=== PATIENT | male | born 1990 | race Hispanic/Latino ===

== ENCOUNTER 2016-08-22 08:09 | Day surgery (SDC) | payer OTHER ==
[~2016-08-22] VITALS: Ht 175.3 cm; Wt 79.5 kg
--- NOTE | 2016-08-22 07:17 | PCM.HPANE ---
Patient Data Surgeon Admitting Provider: Attending Provider:Jl Bradley DO Primary Care Physician:Fahad Ivy MD Other Provider: Reason for Visit Right Middle Finger Mass Ht/WT & BMI Height (Feet): 5 Height (Inches): 9 Weight (Kilograms): 81.01 Body Mass Index 26.00 Allergies Coded Allergies: No Known Allergies (Unverified , 08/21/16) Past Anesthesia History Anesthesia History: Denies:: Anesthesia Reactions Diabetes History Hx Diabetes?: No Medications No Active Prescriptions or Reported Meds History History of ENT Problems?: No Hx of Heart Problems?: No Hx of Respiratory Problem?: No Respiratory History: Denies:: Oxygen Administration Use of C-PAP Machine Hx Neurologic Problems?: No Hx of GI Problems?: No Hx of Problems?: No Hx Musculoskeletal Problems?: Yes Musculoskeletal History: Positive for:: Musculoskeletal Trauma (right middle finger mass current admission problem) Hx of Psycho/Social Problems?: No Hx Any Other Health Problems?: No Other History: Denies:: Cancer Hx Diabetes: No Have You Smoked inLast 12 mo: No Stop/Bang P-Blood Pressure: treated: No B- Body Mass Index > 35 kg/m2: No A- Age over 50: No N- Neck Large Circumference: No G- Gender Male: Yes Risk Assessment Category Category 1A: Patient has history of documented sleep apnea, and HAS NOT received any narcotic, sedative or anesthesia administration during this stay. Category 1B: Patient has history of documented sleep apnea, and HAS received any narcotic , sedative or anesthesia administration during this stay Category 2: Patient has SUSPECTED Obstructive Sleep Apnea, and HAS received any narcotic , sedative or anesthesia administration during this stay. Category 3: Patient has SUSPECTED Obstructive Sleep Apnea and HAS NOT received narcotic, sedative or anesthesia administration during this stay. Category 4: Outpatient in Procedural Areas with known sleep apnea or who screen positive for High Risk via the STOP/BANG questionnaire. Exam Exam General Appearance: Alert, Oriented X3, Cooperative HEENT/AIRWAY: MP 2, Neck Movement (from), Mouth Opening (wnl) Lungs: Clear to Auscultation Heart: Exam Unremarkable Plan Impression Patient chart reviewed, patient interviewed and anesthestic plan with risks, benefits, and alternatives discussed, and informed consent obtained. ASA Physical Status: ASA1 Normal Healthy Anesthetic Plan: MAC Bene/Risks/Altern/Consents: Yes HP Complete Prior to Induction: Yes Dequan Crockett MD Aug 22, 2016 07:17
[~2016-08-22 08:09] MED LIST: Lactated Ringer's 1,000 ML IV SCH
[2016-08-22] MEDS ORDERED: Lidocaine PF 1% 30 mL Inj ONE (08:10)
[2016-08-22] MEDS ORDERED: Propofol 10,000 mCg/mL 20 mL Inj ONE (08:10)
[2016-08-22] MEDS ORDERED: fentaNYL-PF 50 mCg/mL 2 mL Inj ONE (08:10)
[2016-08-22] MEDS ORDERED: Ondansetron 2 mg/mL 2 mL Inj ONE (08:10)
[2016-08-22] MEDS ORDERED: Lactated Ringer's 1,000 ML IV ONE (09:22)
[2016-08-22 09:24] VITALS: BP 112/73; PULSE 82; RESP 14; O2SAT 100
[2016-08-22] MEDS ORDERED: Lactated Ringer's 1,000 ML IV SCH (10:06)
[2016-08-22] MEDS ORDERED: Lactated Ringer's 500 ML IV PRN (10:06)
[2016-08-22] MEDS ORDERED: Phenylephrine 10,000 mCg/mL Inj IVPUSH PRN (10:10)
[2016-08-22] MEDS ORDERED: HYDROmorphone 1 mg/mL Inj IVPUSH PRN (10:10)
[2016-08-22] MEDS ORDERED: Ondansetron 2 mg/mL 2 mL Inj IVPUSH PRN (10:10)
[2016-08-22] MEDS ORDERED: EPHEDrine Sulfate 50 mg/mL Inj IVPUSH PRN (10:10)
[2016-08-22] MEDS ORDERED: MetoCLOpramide 5 mg/mL 2 mL Inj IVPUSH PRN (10:10)
[2016-08-22] MEDS ORDERED: fentaNYL-PF 50 mCg/mL 2 mL Inj IVPUSH PRN (10:10)
[2016-08-22] MEDS ORDERED: Dexamethasone 4 mg/mL Inj IVPUSH PRN (10:10)
[2016-08-22] MEDS ORDERED: HYDROcodone-APAP 5-325 mg Tablet PO PRN (10:35)
[2016-08-22 11:40] VITALS: BP 130/69; PULSE 90; RESP 16; O2SAT 98
[2016-08-22 12:02] VITALS: BP 115/65; PULSE 81; RESP 16; O2SAT 98
--- NOTE | 2016-08-22 12:27 | PCM.ANEP2 ---
Post Anesthesia Evaluation ASA/CMS Post Anesthesia VS in Patient's Normal Range?: Yes Resp Stable; Airway Patent?: Yes CV Function & Hydration Stable: Yes Mental Status Recovered?: Yes Pain control Satisfactory?: Yes N/V Control Satisfactory?: Yes Dequan Crockett MD Aug 22, 2016 12:27
--- NOTE | 2016-08-22 12:27 | PCM.ANEP1 ---
Post Anesthesia Phase 1 PACU Phase 1 Assessment Vital Signs Vital Signs Date Time Temp Pulse Resp B/P Pulse Ox O2 Delivery O2 Flow Rate FiO2 08/22/16 12:02 36.4 81 16 115/65 98 Room Air 08/22/16 11:40 90 16 130/69 98 Room Air 08/22/16 09:24 36.4 82 14 112/73 100 Room Air Anesthetic Administered: MAC Level of Alertness: Awake, talking SAENZ's with Equal Strength: No Pain: No Oxygen Delivery: Room Air Lungs: Normal Air Movement Dequan Crockett MD Aug 22, 2016 12:27
--- NOTE | 2016-08-23 00:30 | OP ---
[address] [address] OPERATIVE REPORT PATIENT: JOO MAHMOOD : 1990 MR#: [id number] ADMIT: 08/22/2016 JOB ID: [id number] DATE OF SURGERY: 08/22/2016 PREOPERATIVE DIAGNOSIS(ES): Right middle finger soft tissue mass. POSTOPERATIVE DIAGNOSIS(ES): Right middle finger soft tissue mass. PROCEDURE: Excision of her right middle finger soft tissue mass measuring 4 cm in diameter. The mass was both subcutaneous and also subfascial as it did go within the flexor tendon sheath, as well as the proximal interphalangeal joint. SURGEON: Jl Bradley D.O. ANESTHESIA: [place] block. HISTORY: The patient is a pleasant 26-year-old male with a longstanding history of a mass to his right middle finger. The mass was progressively enlarging and started to cause a worry to the patient, and got in the way only with grasping type activities. I discussed with the patient due to the progressively enlarging size the option to have this excised. He understood the risks include, but are not limited to, neurovascular injury, tendon injury, infection, failure to remove the entire mass, recurrent stiffness, persistent pain; all of which may require further intervention. Patient had all questions answered. Consent was signed and placed in chart. PROCEDURE IN DETAIL: The patient was brought to the operative suite and placed supine on the operating room table. Surgical time-out was performed. Everyone in the room was in agreement. After appropriate anesthesia was obtained, the right upper extremity was then prepped and draped in sterile fashion. A modified Carl incision was then made centered at the level of the proximal phalanx to the middle finger. Dissection was carried down medially, identifying a large subcutaneous mass. The mass represented most likely a giant cell tumor. This was freed up from the surrounding soft tissue. The mass did penetrate within the tendon sheath. The mass further tracked along the radial margin of the proximal interphalangeal joint and also penetrated the joint. The entire mass was then removed, including portions that were subcutaneous, as well as within the tendon sheath and the joint. The entire content measured approximately 4 cm in diameter. The digital neurovascular bundles were well identified and protected throughout. After confirmation that all components of the mass were removed, the mass was sent off to Pathology for further identification. Copious irrigation was then performed, followed by closure of the skin with 5-0 nylon in simple interrupted fashion. The patient was then placed in a bulky soft dressing. ESTIMATED BLOOD LOSS: Less than 5 cc. COMPLICATIONS: None. DISPOSITION: The patient tolerated the procedure well. Anesthesia was reversed. The patient was transferred to PACU for recovery. SPECIMENS: A 4 cm in diameter mass from the right middle finger sent to Pathology. POSTOPERATIVE PLAN: The patient to follow up in office in two weeks. I will remove the patient's sutures at that time and have him start working on range of motion and scar mobilization. ZHANE
--- NOTE | 2016-08-26 15:10 | PATH ---
SURGICAL PATHOLOGY Attending Physician:Jl Bradley MD CASE STATUS: Signed Out PATIENT NAME: KRISHNA MAHMOOD PID: [id number] : 1990 DATE COLLECTED:08/22/2016 20:13 SPECIMEN: Mass, NOS CLINICAL HISTORY: RIGHT MIDDLE FINGER MASS 1). 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 The cut surface is focally [place]. 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 08/24/16 MICRO DESCRIPTION: Sections are of a large soft tissue nodule composed of a proliferation of synovial-like cells alternating with areas of xanthoma cells. Multinucleated giant cells are present in one area. There is no abnormal proliferative activity or pleomorphism. ICD-9 CODES: CPT CODES: 89914 Electronically Signed Out Erin Aceves MD [facility] [address], [place] [address] Technical component performed at [facility], [facility] [address], [place], [address]
== END 2016-08-22 23:59 | disposition home or self-care (01) ==
LOC: SAS 08:09
PROVIDERS: ATTEND Orthopaedic Surgery
DX: D48.1 Neoplasm of uncertain behavior of connective and other soft tissue (principal); Z87.891 Personal history of nicotine dependence
CPT/HCPCS: 26113; J2250; J2405; J3010; J7120